=== PATIENT | male | born 1955 | race Caucasian/White ===

== ENCOUNTER → 2018-03-02 | Outpatient (REF) | payer MEDICARE, OTHER | LOC: M SFHCPLAZ 19:29 | PROVIDERS: ATTEND Dermatology | DX: D22.4 Melanocytic nevi of scalp and neck (principal) ==

== ENCOUNTER → 2018-10-28 | Outpatient (CLI) | payer MEDICARE, OTHER ==
--- NOTE | 2018-10-28 09:39 | REP ---
Clinical: Asbestos exposure . Comparison: None . Technique: PA and lateral. Findings: The mediastinum and cardiac silhouette are normal. The lung dickens are clear and without acute consolidation, effusion, or pneumothorax. The skeletal structures are intact and normal. Impression: 1. No acute cardiopulmonary process. Electronically Signed by Rafat Purcell MD 10/28/2018 09:30 A
== END ==
LOC: M WUC 09:21
PROVIDERS: ATTEND Internal Medicine
DX: Z77.090 Contact with and (suspected) exposure to asbestos (principal)

== ENCOUNTER 2018-12-04 09:47 | Day surgery (SDC) | payer MEDICARE, OTHER ==
[~2018-12-04] VITALS: Ht 177.8 cm; Wt 116.6 kg
[~2018-12-04 09:47] MED LIST: ALLO10TA PO; AMLO25TA PO; D 1010004 PO; HYDR12.55 PO; INFL10VL IV; LR 1,000 ML IV ONE; LevoFLOXacin IV 500 MG in APPROPRIATE DILUENT 1 EA IV ONE; LevoFLOXacin IV 500 MG in APPROPRIATE DILUENT 1 EA IV SCH; MOTR200T44 PO; OMEP10CASR PO; [UNRECOGNIZED DRUG - OTHER] PO
[2018-12-04] MEDS ORDERED: KETAMINE HCL 200 MG/20 ML VIAL As Ordered ONE (10:12)
[2018-12-04] MEDS ORDERED: PROPOFOL 200 MG/20 ML VIAL As Ordered ONE ×2 (10:27→13:27)
[2018-12-04] MEDS ORDERED: ROCURONIUM BROMIDE 50 MG/5 ML VIAL As Ordered ONE (10:27)
[2018-12-04] MEDS ORDERED: LIDOCAINE 2% INJ 100 MG/5 ML SDV (FOR ANES.) As Ordered ONE (10:27)
[2018-12-04] MEDS ORDERED: KETOROLAC 60 MG/2 ML VIAL (J1885) As Ordered ONE (10:27)
[2018-12-04] MEDS ORDERED: ONDANSETRON 4MG/2ML VIAL (J2405) As Ordered ONE (10:27)
[2018-12-04] MEDS ORDERED: SUGAMMADEX SODIUM 500 MG/5 ML VIAL (BRIDION) As Ordered ONE (10:27)
[2018-12-04] MEDS ORDERED: MIDAZOLAM INJ 2 MG/2 ML VIAL (J2250) As Ordered ONE (10:28)
[2018-12-04] MEDS ORDERED: dexameTHASONE 4 MG/ML 1ML VIAL (J1100) As Ordered ONE (10:28)
[2018-12-04] MEDS ORDERED: fentaNYL 100 MCG/2 ML INJECTION (J3010) As Ordered ONE ×3 (10:28→14:48)
[2018-12-04] MEDS ORDERED: BUPIVACAINE/EPIN 0.25% 30 ML VIAL As Ordered ONE (11:54)
[2018-12-04] MEDS ORDERED: ACETAMINOPHEN 1000MG 100ML IV BTL (OFIRMEV) (J0131 PER 10MG) As Ordered ONE (13:05)
[2018-12-04] MEDS ORDERED: METHOCARBAMOL 1,000 MG/10 ML VIAL (J2800) As Ordered ONE (13:19)
[2018-12-04] MEDS ORDERED: PERCOCET 5MG/325MG TAB As Ordered ONE (14:48)
[2018-12-04] MEDS ORDERED: oxyCODONE 5MG TAB As Ordered ONE (14:50)
[2018-12-04] MEDS: oxyCODONE 5MG TAB PO PRN ×2 (14:51→16:01)
[2018-12-04] MEDS: fentaNYL 100 MCG/2 ML INJECTION (J3010) IV PRN ×4 (14:52→15:08)
[2018-12-04] MEDS ORDERED: HYDROMORPHONE HCL 0.5 MG/ 0.5 ML SYRINGE (J1170 PER 1) IV PRN (15:00)
[2018-12-04] MEDS ORDERED: LR 1,000 ML IV SCH ×2 (15:00)
[2018-12-04] MEDS ORDERED: ONDANSETRON 4MG/2ML VIAL (J2405) IV PRN (15:00)
[2018-12-04] MEDS ORDERED: KETOROLAC 30 MG/ML VIAL (J1885) IV PRN (15:00)
[2018-12-04] MEDS ORDERED: PERCOCET 5MG/325MG TAB PO PRN (15:00)
--- NOTE | 2018-12-04 15:10 | RO ---
DATE OF PROCEDURE: 12/04/2018 PREOPERATIVE DIAGNOSIS: Right inguinal hernia. POSTOPERATIVE DIAGNOSIS: Right inguinal hernia. PROCEDURE: Robotic-assisted right inguinal hernia repair with ProGrip mesh. SURGEON: Dr. Dutch Patel SPECIAL EDUCATION CURRICULUM SPECIALIST: Jackeline Harry (provided trocar placement, trocar closure, mesh placement and instrument exchange). ANESTHESIA: General endotracheal anesthesia. DISPOSITION: The patient was taken to recovery room awake, alert, hemodynamically stable. Sponge and needle counts correct times two. DESCRIPTION OF PROCEDURE: The patient was taken operating room and was given general anesthesia. After adequate anesthesia and preoperative antibiotics were given, the patient was prepped and draped in the usual sterile fashion. Next a supraumbilical incision was made with skin knife. Blunt dissection was carried down to fascia. A Veress needle placed into the abdominal cavity, insufflated to 15 mm of pressure. A dilating 8 mm trocar was placed, two lateral 8 mm trocars were placed under direct visualization and the patient was placed in steep Trendelenburg position. The peritoneum on the right was taken down by monopolar cut scissors and a combination of blunt sharp dissection was used to mobilize the hernia sac out of the inguinal canal. There was also a lipoma cord that was reduced and transected at its base with cautery. After adequate exposure of the Rodriguez's ligament pubis and the direct and indirect components a ProGrip mesh was placed in the preperitoneal space, pressed into position and the peritoneum was closed over the top of this under decreased pressure with #3-0 V-Loc suture. All trocars removed under direct visualization. #4-0 Vicryl was used to close all incisions. Steri-Strips and a dry sterile dressing was applied. The patient was awakened from anesthesia, brought to the recovery room awake, alert hemodynamic stable. All sponge and needle counts correct times two.
[2018-12-04 17:25] VITALS: BP 134/84
== END 2018-12-04 17:35 | disposition home or self-care (01) ==
LOC: M SDC 09:47
PROVIDERS: ATTEND Surgery
DX: K40.90 Unilateral inguinal hernia, without obstruction or gangrene, not specified as recurrent (principal); I10 Essential (primary) hypertension; M10.9 Gout, unspecified; F43.10 Post-traumatic stress disorder, unspecified; F41.9 Anxiety disorder, unspecified; F32.9 Major depressive disorder, single episode, unspecified; Z79.899 Other long term (current) drug therapy; Z87.891 Personal history of nicotine dependence; Z88.2 Allergy status to sulfonamides; Z88.8 Allergy status to other drugs, medicaments and biological substances
CPT/HCPCS: 49650; C1781; J0131; J1100; J1885; J1956; J2250; J2405; J2800; J3010

== ENCOUNTER → 2019-03-02 | Outpatient (REF) | payer MEDICARE, OTHER ==
[~2019-03-02] MED LIST changes: -LR 1,000 ML IV ONE; -LevoFLOXacin IV 500 MG in APPROPRIATE DILUENT 1 EA IV ONE; -LevoFLOXacin IV 500 MG in APPROPRIATE DILUENT 1 EA IV SCH
== END ==
LOC: M LAB REF 18:50
PROVIDERS: ATTEND Dermatology
DX: L72.0 Epidermal cyst (principal); L57.0 Actinic keratosis

== ENCOUNTER → 2020-03-16 | Outpatient (REF) | payer MEDICARE, OTHER | LOC: M LAB REF 13:46 | PROVIDERS: ATTEND Dermatology | DX: D22.5 Melanocytic nevi of trunk (principal) ==

== ENCOUNTER → 2020-07-04 | Outpatient (CLI) | payer MEDICARE, OTHER ==
--- NOTE | 2020-07-04 10:19 | REP ---
INDICATION: HX OF ASBESTOS EXPOSURE COMPARISON: 10/28/2018 TECHNIQUE: PA and lateral. FINDINGS: The mediastinum and cardiac silhouette are normal. The lung dickens are clear and without acute consolidation, effusion, or pneumothorax. The skeletal structures are intact and normal. IMPRESSION: No acute cardiopulmonary process. <Electronically signed by Rafat Purcell > 07/04/20 1826
== END ==
LOC: M WUC 10:00
PROVIDERS: ATTEND Internal Medicine
DX: Z77.090 Contact with and (suspected) exposure to asbestos (principal)

== ENCOUNTER → 2020-08-30 | Outpatient (CLI) | payer MEDICARE, OTHER ==
[2020-09-01 00:07] LABS: PSA TOTAL 1.1 ng/mL (0.0-4.0)
== END ==
LOC: M WUC 08:53
PROVIDERS: ATTEND Urology
DX: Z12.5 Encounter for screening for malignant neoplasm of prostate (principal); R97.20 Elevated prostate specific antigen [PSA]

== ENCOUNTER → 2021-04-17 | Outpatient (CLI) | payer MEDICARE, OTHER | LOC: M WUC 11:03 | DX: M25.511 Pain in right shoulder (principal) ==

== ENCOUNTER → 2022-01-29 | Outpatient (CLI) | payer MEDICARE, OTHER | LOC: M WUC 08:10 | PROVIDERS: ATTEND Internal Medicine | DX: Z77.090 Contact with and (suspected) exposure to asbestos (principal) ==

== ENCOUNTER → 2022-12-09 | Outpatient (REF) | payer MEDICARE, OTHER | LOC: M SFHCDERM 10:08 | PROVIDERS: ATTEND Physician Assistant | DX: R21 Rash and other nonspecific skin eruption (principal) ==

== ENCOUNTER → 2023-02-10 | Outpatient (CLI) | payer MEDICARE, OTHER | LOC: M WUC 09:03 | PROVIDERS: ATTEND Internal Medicine | DX: Z77.090 Contact with and (suspected) exposure to asbestos (principal) ==

== ENCOUNTER → 2023-08-29 | Outpatient (REF) | payer MEDICARE, OTHER | LOC: M LAB REF 15:37 | PROVIDERS: ATTEND Surgery | DX: L72.3 Sebaceous cyst (principal) ==

== ENCOUNTER → 2023-11-19 | Outpatient (CLI) | payer MEDICARE, OTHER | LOC: M CARPUL 10:57 | PROVIDERS: ATTEND Internal Medicine | DX: I48.91 Unspecified atrial fibrillation (principal) ==

== ENCOUNTER 2023-12-03 06:20 | Day surgery (SDC) | payer MEDICARE, OTHER ==
[~2023-12-03] VITALS: Ht 175.3 cm; Wt 115.3 kg
[~2023-12-03 06:20] MED LIST changes: +ELIQ5TAB PO; +METO1TAB87 PO; +PREG50CA3 PO
[2023-12-03] MEDS ORDERED: propofoL 200 MG/20 ML VIAL As Ordered ONE (07:04)
[2023-12-03] MEDS ORDERED: LIDOCAINE 2% 100MG/5ML SDV (FOR ANES.) As Ordered ONE (07:04)
[2023-12-03] MEDS ORDERED: LR 1,000 ML IV SCH (07:10)
[2023-12-03 08:06] VITALS: TEMP 97
[2023-12-03 08:24] VITALS: BP 132/84; O2SAT 97
== END 2023-12-03 08:25 | disposition home or self-care (01) ==
LOC: M SDC 06:20
PROVIDERS: ATTEND Internal Medicine Cardiovascular Disease
DX: I48.91 Unspecified atrial fibrillation (principal); I10 Essential (primary) hypertension; M10.9 Gout, unspecified; L40.9 Psoriasis, unspecified; F43.10 Post-traumatic stress disorder, unspecified; F41.9 Anxiety disorder, unspecified; F32.A Depression, unspecified; Z79.01 Long term (current) use of anticoagulants; Z87.891 Personal history of nicotine dependence; Z79.899 Other long term (current) drug therapy; Z88.2 Allergy status to sulfonamides; Z88.1 Allergy status to other antibiotic agents; Z88.5 Allergy status to narcotic agent; Z88.8 Allergy status to other drugs, medicaments and biological substances

== ENCOUNTER 2024-01-24 04:56 | Emergency (ER) | payer MEDICARE, OTHER ==
[~2024-01-24] VITALS: Ht 175.3 cm; Wt 110.0 kg
[2024-01-24 05:48] LABS: BASO % 0.2 % (0.0-1.0); EOS % 0.1 % (0.0-3.0); HEMATOCRIT 42.8 % (42.0-52.0); HEMOGLOBIN 14.8 g/dl (13.5-17.5); LYMPH # 1.2 10^3/uL (1.5-5.0); LYMPH % 9.1 % (24.0-44.0); MEAN CORPUSCULAR HEMOGLOBIN 32.7 pg (27.0-33.0); MEAN CORPUSCULAR HGB CONC 34.6 g/dl (32.0-36.5); MEAN CORPUSCULAR VOLUME 94.7 fl (80.0-96.0); MONO % 15.9 % (2.0-8.0); NEUTROPHILS # 9.6 10^3/uL (1.5-8.5); NEUTROPHILS % 74.4 % (36.0-66.0); PLATELET COUNT, AUTOMATED 195 10^3/uL (150-450); RED BLOOD COUNT 4.52 10^6/uL (4.30-6.10); WHITE BLOOD COUNT 12.8 10^3/uL (4.0-10.0)
[2024-01-24 06:04] LABS: INR 1.2; PARTIAL THROMBOPLASTIN TIME 39.7 SECONDS (24.8-34.2); PROTHROMBIN TIME 15.5 SECONDS (12.5-14.5)
[2024-01-24 06:11] LABS: CK-MB VALUE MASS 1.2 NG/ML (<3.6)
[2024-01-24 06:17] LABS: MB/CK RELATIVE INDEX 1.12 (< OR =4)
[2024-01-24 06:56] LABS: BLOOD UREA NITROGEN 12 MG/DL (9-23); CALCIUM LEVEL 9.5 MG/DL (8.3-10.6); CARBON DIOXIDE LEVEL 25 MMOL/L (20-31); CHLORIDE LEVEL 104 MMOL/L (98-107); CK-MB VALUE MASS < 1.0 NG/ML (<3.6); CPK CREATINE PHOSPHOKINASE 90 U/L (46-171); CREATININE FOR GFR 0.96 MG/DL (0.70-1.30); GLOMERULAR FILTRATION RATE > 60.0 (>49); GLUCOSE, FASTING 106 MG/DL (74-106); MB/CK RELATIVE INDEX 1.11 (< OR =4); SODIUM LEVEL 138 MMOL/L (136-145)
[2024-01-24] MEDS: MORPHINE 2 MG/ML 1ML VIAL IV ONE (07:01)
[2024-01-24] MEDS: ACETAMINOPHEN 325 MG TAB PO ONE (07:02)
[2024-01-24 07:28] LABS: D-DIMER QUANT 0.27 ug/mL (<0.5)
[2024-01-24 07:57] VITALS: TEMP 99.4
[2024-01-24] MEDS ORDERED: VITA500C24 PO (08:21)
[2024-01-24] MEDS ORDERED: FLUO15CR3 TOP (08:21)
[2024-01-24] MEDS ORDERED: ALLO300T2 PO (08:21)
[2024-01-24] MEDS ORDERED: ACET650T15 PO (08:21)
[2024-01-24] MEDS ORDERED: D3 H10002 PO (08:21)
[2024-01-24] MEDS ORDERED: ACET1TAB55 PO (08:21)
[2024-01-24] MEDS ORDERED: HOME MED LIST COMPLETE! XX SCH (08:25)
[2024-01-24] MEDS ORDERED: FLON27.5 NARES (09:24)
[2024-01-24] MEDS ORDERED: PEPC1TAB5 PO (09:24)
[2024-01-24 09:30] VITALS: BP 130/62; O2SAT 95
== END 2024-01-24 10:01 | disposition home or self-care (01) ==
LOC: M ED 04:56
DX: J06.9 Acute upper respiratory infection, unspecified (principal); R06.02 Shortness of breath; I10 Essential (primary) hypertension; Z88.2 Allergy status to sulfonamides; Z88.8 Allergy status to other drugs, medicaments and biological substances; Z86.79 Personal history of other diseases of the circulatory system; Z79.01 Long term (current) use of anticoagulants; Z79.1 Long term (current) use of non-steroidal anti-inflammatories (NSAID); Z79.899 Other long term (current) drug therapy

== ENCOUNTER → 2024-07-28 | Outpatient (CLI) | payer MEDICARE, OTHER ==
[~2024-07-28] MED LIST changes: +ACET1TAB55 PO; +ACET650T15 PO; +ALLO300T2 PO; +D3 H10002 PO; +FLON27.5 NARES; +FLUO15CR3 TOP; +PEPC1TAB5 PO; +VITA500C24 PO
== END ==
LOC: M WUC 15:00
PROVIDERS: ATTEND Physician Assistant Medical
DX: R06.02 Shortness of breath (principal); R05.9 Cough, unspecified

== ENCOUNTER → 2024-08-12 | Outpatient (REF) | payer MEDICARE, OTHER | LOC: M LAB REF 13:03 | PROVIDERS: ATTEND Internal Medicine | DX: Z13.89 Encounter for screening for other disorder (principal) ==

== ENCOUNTER → 2025-02-10 | Outpatient (REF) | payer MEDICARE, OTHER ==
[~2025-02-10] MED LIST changes: +ACET-1515 PO; -ACET650T15 PO
[2025-02-10 12:37] LABS: INR 0.98
== END ==
LOC: M LAB REF 12:12
PROVIDERS: ATTEND Internal Medicine
DX: K75.9 Inflammatory liver disease, unspecified (principal)